=== PATIENT | female | born 1985 | race Caucasian/White ===

== ENCOUNTER 2020-01-19 17:16 | Emergency (ER) | payer OTHER ==
[~2020-01-19] VITALS: Ht 165.1 cm; Wt 57.8 kg
[~2020-01-19 17:16] MED LIST: ACET325S PO; IBUP-1222 PO; LABE100T6 PO; LABE200T6 PO; NORG1TAB6 PO; PREN1TAB52 PO
--- NOTE | 2020-01-19 18:00 | NUR ---
FIRST CONTACT WITH PT. PT SITTING UP IN [facility] IN MODERATE DISTRESS SECONDARY TO ACUTE R FLANK/RLQ ABD PAIN. PT REPORTS PAIN CAME ON SUDDENLY AT APPROXIMATELY 1500; WORSENS WITH MOVEMENT AND PALPATION. DENIES ASSOCIATED N/V/D/FEVER/DYSURIA/BLOOD IN STOOL OR URINE. HX SIGNIFICANT FOR CERVICAL CANCER. BP/SPO2 MONITORING IN PLACE. AWAITING ERP EVAL.
[2020-01-19] MEDS ORDERED: ONDANSETRON 2MG/ML, 2ML ONE (18:24)
[2020-01-19] MEDS ORDERED: MORPHINE SULFATE 4 MG/ML, 1ML ONE (18:25)
[2020-01-19] MEDS ORDERED: ONDANSETRON 2MG/ML, 2ML IVPush ONE (18:30)
[2020-01-19] MEDS ORDERED: SODIUM CHLORIDE FLUSH 10ML SYR IVF ONE (18:30)
--- NOTE | 2020-01-19 18:40 | NUR ---
IV ESTABLISHED. LABS DRAWN. UA COLLECTED AND SENT TO LAB. PT MEDICATED PER EMAR FOR PAIN/NAUSEA
[2020-01-19] MEDS: MORPHINE SULFATE 4 MG/ML, 1ML IVPush PRN ×2 (18:43→20:58)
[2020-01-19 19:06] LABS: BASOPHILS # (AUTO) 0.02 x10^3/uL (0-0.1); BASOPHILS % (AUTO) 0 % (0-1); EOSINOPHILS % (AUTO) 1 % (1-7); LYMPHOCYTES # (AUTO) 2.19 x10^3/uL (1-3.4); LYMPHOCYTES % (AUTO) 19 % (22-44); MD NO; MEAN CORPUSCULAR HEMOGLOBIN 31.9 pg (27.0-34.8); MEAN CORPUSCULAR HGB CONC 32.9 g/dL (32.4-35.8); MEAN CORPUSCULAR VOLUME 96.8 fL (80-100); MONOCYTES # (AUTO) 0.57 x10^3/uL (0.2-0.8); MONOCYTES % (AUTO) 5 % (2-9); NEUTROPHILS # (AUTO) 8.61 x10^3/uL (1.8-6.8); NEUTROPHILS % (AUTO) 75 % (42-75); PLATELET COUNT 321 x10^3/uL (130-400); RED BLOOD COUNT 5.02 x10^6/uL (3.82-5.3); RED CELL DISTRIBUTION WIDTH 13.9 % (9.6-15.2)
[2020-01-19 19:16] LABS: MICROSCOPIC NOT IND
[2020-01-19 19:18] LABS: ANION GAP 5 mmol/L (5-15); CHLORIDE 109 mmol/L (98-107)
[2020-01-19 19:24] LABS: ALANINE AMINOTRANSFERASE 30 U/L (12-78); ALKALINE PHOSPHATASE 72 U/L (45-117); BILIRUBIN,TOTAL 0.2 mg/dL (0.2-1.0); TOTAL PROTEIN 7.2 g/dL (6.4-8.2)
--- NOTE | 2020-01-19 19:39 | NUR ---
PT REPORTS SIGNIFICANT IMPROVEMENT IN PAIN WITH MEDICATIONS. CT ORDERED. PT UPDATED TO POC AND DEMONSTRATES UNDERSTANDING
[2020-01-19] MEDS ORDERED: HYDROcodone/APAP 5/325 TABLET ONE (20:56)
[2020-01-19 20:58] VITALS: BP 144/95
--- NOTE | 2020-01-19 20:58 | NUR ---
POC IS DC. PT REPORTS PAIN IS "STARTING TO COME BACK". ERP AWARE. ORDER RECEIVED FOR [facility] PRIOR TO DC. PT MEDICATED PER EMAR. DC EDUCATION PROVIDED. PT AMBULATED STEADILY TO DC WITH RN AND FATHER. FATHER TO TRANSPORT PT HOME
[2020-01-19] MEDS ORDERED: HYDROcodone/APAP 5/325 TABLET PO ONE (21:00)
[2020-01-19] MEDS ORDERED: OMNIPAQUE 350 MG/ML, 100ML BOTTLE ONE (23:17)
== END 2020-01-19 21:25 | disposition home or self-care (01) ==
LOC: ED 17:50
DX: N83.01 Follicular cyst of right ovary (principal); R10.31 Right lower quadrant pain; F17.200 Nicotine dependence, unspecified, uncomplicated
CPT/HCPCS: 36415; 74177; 80053; 81003; 83690; 84703; 85025; 96374; 99285; J2270; J2405; Q9967